=== PATIENT | male | born 1990 | race American Indian/Alaskan Native ===

== ENCOUNTER 2018-05-17 21:04 | Emergency (ER) | payer SELFPAY ==
[2018-05-17 21:12] VITALS: BP 146/82
== END 2018-05-18 03:34 | disposition left against medical advice (07) ==
LOC: ED 21:04
DX: Z11.3 Encounter for screening for infections with a predominantly sexual mode of transmission (principal); Z53.21 Procedure and treatment not carried out due to patient leaving prior to being seen by health care provider